=== PATIENT | female | born 1940 | race Caucasian/White ===

== ENCOUNTER 2020-08-20 10:32 | Emergency (ER) | payer MEDICARE ==
--- NOTE | 2020-08-20 11:14 | ERPHSYRPT ---
- History of Present Illness Time Seen by Provider: 08/20/20 10:50 Source: patient Exam Limitations: no limitations Patient Subjective Stated Complaint: Pt fell last Wednesday and went to the ER and pt is still weak, unable to swallow, pain to left hip Triage Nursing Assessment: Pt brought to the ER by her son,dori wnl, rates pain 9-10/10, pain to the left hip, pt was ambulatory last month without assistance prior to a fall, pt now walks with a walker and has problems when she turns, esophagus was dialated the first of July and then the end of July she began having problems again and chokes when drinking, gets stuck in throat and then vomits it up, since pt's fall last week her left foot has began turning outward Physician History: Patient is a 88-year-old female presents to our emergency department with her son. Patient lives with her son. Patient complaining of left thigh pain. Patient has a history of esophageal stenosis. Patient requires dilation frequently. Her last esophageal dilation was in July. Patient has not been eating and feels weak. Patient believes that her esophagus needs to be redilated. Patient states when she eats she just vomits up her food. Patient fall last Wednesday was attributed to this weakness. No chest pain or shortness of breath. No nausea vomiting or diaphoresis. Symptoms are constant. Symptoms are moderate in intensity. Weightbearing worsens pain. 2 weeks ago patient was ambulatory independently. Patient now requires a walker and states her left thigh hurts when she walks. Son at bedside. They voiced no other complaints concerns at this time. Timing/Duration: week(s) (1 week) Severity: moderate Modifying Factors: Improves With: movement Associated Symptoms: nausea, vomiting Allergies/Adverse Reactions: Penicillins Allergy (Verified 08/20/20 10:56) Sulfa (Sulfonamide Antibiotics) [Sulfa(Sulfonamide Antibiotics)] Allergy (Verified 08/20/20 10:56) Home Medications: Paroxetine HCl [Paxil] 30 mg PO DAILY 11/03/14 [History] ALPRAZolam 0.25 MG [xanAX 0.25 MG] 0.25 mg PO HS 08/20/20 [History] Albuterol/Ipratropium 3ml Neb* [DUONEB 0.5-3 MG/3 ml Neb] 1 inh PO QID 08/20/20 [History] Aripiprazole [Abilify] 5 mg PO HS 08/20/20 [History] Aspirin EC 81 mg [Ecotrin 81 mg] 81 mg PO DAILY 08/20/20 [History] Cyanocobalamin 1000 Mcg/ml [Cyanocobalamin B-12 1000 MCG/ML] 1,000 mcg IJ UD 08/20/20 [History] Esomeprazole Magnesium [Nexium] 40 mg PO DAILY 08/20/20 [History] Guaifenesin 400 mg PO BID 08/20/20 [History] Isosorbide Mononitrate [Isosorbide Mononitrate ER] 30 mg PO DAILY 08/20/20 [His tory] Lisinopril 20 mg [Zestril 20 MG] 20 mg PO DAILY 08/20/20 [History] Metoprolol Succinate 25 mg Xl* [Toprol-Xl 25MG Tablets] 25 mg PO BID 08/20/20 [History] Mirtazapine [Remeron] 15 mg PO DAILY 08/20/20 [History] Olanzapine 5 mg [zyPREXA 5MG TABLET] 5 mg PO HS 08/20/20 [History] Tizanidine HCl 4 mg [Zanaflex 4 MG] 4 mg PO TID PRN 08/20/20 [History] Tramadol HCl 50 mg [Ultram 50 mg] 50 mg PO Q6H PRN 08/20/20 [History] Trazodone HCl 100 mg PO HS 08/20/20 [History] Hx Tetanus, Diphtheria Vaccination/Date Given: Yes Hx Influenza Vaccination/Date Given: No Hx Pneumococcal Vaccination/Date Given: No Travel Risk - International Travel Have you traveled outside of the country in past 3 weeks: No - Coronavirus Screening Are you exhibiting any of the following symptoms?: No Close contact with a COVID-19 positive Pt in past 14-21 Days: No - Vaccine Status Have you recieved a Covid-19 vaccination: Yes Mechanical Design Technician: [employer] - Vaccination Dates Date of 2cond Vaccination (if applicable): 05/08/2020 - Review of Systems Constitutional: No Symptoms, No Fever, No Chills Eyes: No Symptoms Ears, Nose, & Throat: No Symptoms Respiratory: No Symptoms, No Cough, No Dyspnea Cardiac: No Symptoms, No Chest Pain, No Edema, No Syncope Abdominal/Gastrointestinal: No Symptoms, No Abdominal Pain, No Nausea, No Vo miting, No Diarrhea Genitourinary Symptoms: No Symptoms, No Dysuria Musculoskeletal: No Symptoms, No Back Pain, No Neck Pain Skin: No Symptoms, No Rash Neurological: No Symptoms, No Dizziness, No Focal Weakness, No Sensory Changes Psychological: No Symptoms Endocrine: No Symptoms Hematologic/Lymphatic: No Symptoms Immunological/Allergic: No Symptoms All Other Systems: Reviewed and Negative - Past Medical History Pertinent Past Medical History: Yes Neurological History: No Pertinent History ENT History: No Pertinent History Cardiac History: No Pertinent History Respiratory History: COPD Endocrine Medical History: No Pertinent History Musculoskeletal History: Fractures, Osteoarthritis GI Medical History: No Pertinent History History: Other Psycho-Social History: Depression Female Reproductive Disorders: No Pertinent History Other Medical History: SLEEP APNEA; KIDNEY STONES - Past Surgical History Past Surgical History: Yes Neuro Surgical History: No Pertinent History Cardiac: No Pertinent History Respiratory: No Pertinent History Gastrointestinal: No Pertinent History Genitourinary: Other Musculoskeletal: Joint Replacement, Orthopedic Surgery Female Surgical History: Hysterectomy Other Surgical History: kidney stonesX2, rt clavicle with pins and wires - Social History Smoking Status: Current every day smoker How long have you smoked: 55 Exposure to second hand smoke: Yes Drug Use: none Patient Lives Alone: No Significant Family History: notes - Female History Hx Now: No - Nursing Vital Signs Nursing Vital Signs: Initial Vital Signs Temperature 97.8 F 08/20/20 10:45 Pulse Rate 75 08/20/20 10:45 Blood Pressure 110/48 08/20/20 10:45 O2 Sat by Pulse Oximetry 94 L 08/20/20 10:45 Pain Scale Pain Intensity 5 - Physical Exam General Appearance: no apparent distress, mild distress (Patient has COPD. Patient denies shortness of breath. Patient appears to be mildly tachypneic with mildly labored breathing. Patient denies symptomology otherwise.), alert, cachetic, thin Eye Exam: PERRL/EOMI, eyes nml inspection Ears, Nose, Throat Exam: normal ENT inspection, TMs normal, pharynx normal, moist mucous membranes Neck Exam: normal inspection, non-tender, supple, full range of motion Respiratory Exam: normal breath sounds, lungs clear, No respiratory distress Cardiovascular Exam: regular rate/rhythm, normal heart sounds, normal peripheral pulses Gastrointestinal/Abdomen Exam: soft, normal bowel sounds, No tenderness, No mass Back Exam: normal inspection, normal range of motion, No CVA tenderness, No vertebral tenderness Extremity Exam: normal inspection, normal range of motion, pelvis stable, other (Tenderness to palpation at left lateral thigh. This has been ongoing for 1 week. Patient has had multiple x-rays that were all negative. X-rays were performed at [facility].) Neurologic Exam: alert, oriented x 3, cooperative, normal mood/affect, nml cerebellar function, nml station & gait, sensation nml, No motor deficits Skin Exam: normal color, warm, dry, No rash Lymphatic Exam: No adenopathy SpO2 Interpretation: normal SpO2: 94 O2 Delivery: Room Air - Course Nursing assessment & vital signs reviewed: Yes - Radiology Exams Hip X-ray Interpretation: Teleradiologist Report (Nondisplaced oblique proximal femur fracture and lesser trochanter fracture. Nondisplaced left superior pubic ramus fracture) Ordered Tests: Active Orders 24 hr Category Date Time Status Paper Machine Supervisor STAT Care 08/20/20 11:46 Completed EKG-ER Only STAT Care 08/20/20 11:46 Completed IV Insertion STAT Care 08/20/20 11:46 Completed IV Insertion-2nd Peripheral STAT Care 08/20/20 13:19 Completed Oxygen-ED Only Nasal Cannula 3 lpm Care 08/20/20 11:10 Completed Pulse Oximetry (ED) STAT Care 08/20/20 11:46 Completed FEMUR Stat Exams 08/20/20 11:47 Completed CBC W DIFF Stat Lab 08/20/20 12:15 Completed CMP Stat Lab 08/20/20 12:15 Completed CULTURE,URINE Stat Lab 08/20/20 11:55 Received Manual Differential NC Stat Lab 08/20/20 12:15 Completed TROPONIN Q3H Lab 08/20/20 12:15 Completed TROPONIN Q3H Lab 08/20/20 15:08 Completed TROPONIN Q3H Lab 08/20/20 18:00 Ordered TROPONIN Q3H Lab 08/20/20 21:00 Ordered UA W/RFX UR CULTURE Stat Lab 08/20/20 11:55 Completed Medication Summary Discontinued Medications Generic Name Dose Route Start Last Admin Trade Name Freq PRN Reason Stop Dose Admin Sodium Chloride 1,000 mls @ 50 mls/hr 08/20/20 12:00 08/20/20 11:54 Sodium Chloride 0.9% 1000 Ml IV 09/19/20 11:59 50 mls/hr .Q20H HARPREET Administration Ceftriaxone Sodium/Dextrose 1 g in 50 mls @ 100 mls/hr 08/20/20 12:57 08/20/20 13:59 Rocephin 1 Gm-D5w 50 Ml Bag IV 08/20/20 13:26 Infused STAT ONE Infusion Potassium Chloride 20 meq in 100 mls @ 50 mls/hr 08/20/20 13:00 08/20/20 16:13 Potassium Chloride 20 Meq In Water 100ml IV 08/20/20 16:59 Not Given Q2H HARPREET Ceftriaxone Sodium/Dextrose Confirm 08/20/20 13:04 Rocephin 1 Gm-D5w 50 Ml Bag Administered 08/20/20 13:05 Dose 1 g in 50 mls @ ud IV .STK-MED ONE Sodium Chloride Confirm 08/20/20 11:52 Sodium Chloride 0.9% 1000 Ml Administered 08/20/20 11:53 Dose 1,000 mls @ ud .ROUTE .STK-MED ONE Potassium Chloride Confirm 08/20/20 13:17 Potassium Chloride 20 Meq In Water 100ml Administered 08/20/20 13:18 Dose 100 mls @ ud IV .STK-MED ONE Potassium Chloride Confirm 08/20/20 16:10 Potassium Chloride 20 Meq In Water 100ml Administered 08/20/20 16:11 Dose 100 mls @ ud IV .STK-MED ONE Morphine Sulfate 4 mg 08/20/20 12:25 08/20/20 12:26 Morphine Sulfate 4 Mg Inj IV 08/20/20 12:26 4 mg STAT ONE Administration Morphine Sulfate Confirm 08/20/20 12:26 Morphine Sulfate 4 Mg Inj Administered 08/20/20 12:27 Dose 4 mg .ROUTE .STK-MED ONE Morphine Sulfate 4 mg 08/20/20 16:04 08/20/20 16:14 Morphine Sulfate 4 Mg Inj IV 08/20/20 16:05 4 mg STAT ONE Administration Morphine Sulfate Confirm 08/20/20 16:14 Morphine Sulfate 4 Mg Inj Administered 08/20/20 16:15 Dose 4 mg .ROUTE .STK-MED ONE Potassium Chloride 40 meq 08/20/20 12:56 08/20/20 13:00 Klor Con 10 Meq PO 08/20/20 12:57 Not Given STAT ONE Lab/Rad Data: Laboratory Result Diagrams 08/20/20 12:15 08/20/20 12:15 Laboratory Results 08/20/20 08/20/20 08/20/20 Range/Units 15:08 12:15 12:15 WBC (4.0-10.5) K/mm3 RBC (4.1-5.4) M/mm3 Hgb (12.0-16.0) gm/dl Hct (35-47) % MCV (78-100) fl MCH (26-32) pg MCHC (32-36) g/dl RDW (11.5-14.0) % Plt Count (150-450) K/mm3 MPV (7.5-11.0) fl Segmented Neutrophils (36.0-66.0) % Band Neutrophils (0.0-2.0) % Lymphocytes (Manual) (24-44) % Monocytes (Manual) (0.0-12.0) % Eosinophils (Manual) (0.00-3.0) % Toxic Granulation Platelet Estimate (NORMAL) RBC Morphology Anisocytosis Sodium 142 (137-145) mmol/L Potassium 2.8 L* (3.5-5.1) mmol/L Chloride 107 (98-107) mmol/L Carbon Dioxide 24 (22-30) mmol/L Anion Gap 13.1 (5-15) MEQ/L BUN 31 H (7-17) mg/dL Creatinine 1.57 H (0.52-1.04) mg/dL Estimated GFR 33.9 ML/MIN Glucose 94 (74-106) mg/dL Calcium 9.3 (8.4-10.2) mg/dL Total Bilirubin 0.50 (0.2-1.3) mg/dL AST 24 (14-36) U/L ALT 33 (0-35) U/L Alkaline Phosphatase 146 H (38-126) U/L Troponin I 0.012 0.013 (0.000-0.034) ng/mL Serum Total Protein 5.9 L (6.3-8.2) g/dL Albumin 3.3 L (3.5-5.0) g/dL Urine Color (YELLOW) Urine Appearance (CLEAR) Urine pH (5-6) Ur Specific Wayne (1.005-1.025) Urine Protein (Negative) Urine Ketones (NEGATIVE) Urine Blood (0-5) Hamilton/ul Urine Nitrite (NEGATIVE) Urine Bilirubin (NEGATIVE) Urine Urobilinogen (0-1) mg/dL Ur Leukocyte Esterase (NEGATIVE) Urine WBC (Auto) (0-5) /HPF Urine RBC (Auto) (0-2) /HPF U Epithel Cells (Auto) (FEW) /HPF Urine Bacteria (Auto) (NEGATIVE) /HPF Urine Culture Reflexed (NO) Urine Glucose (NEGATIVE) mg/dL 08/20/20 08/20/20 Range/Units 12:15 11:55 WBC 21.2 H (4.0-10.5) K/mm3 RBC 3.87 L (4.1-5.4) M/mm3 Hgb 11.0 L (12.0-16.0) gm/dl Hct 35.4 (35-47) % MCV 91.5 (78-100) fl MCH 28.4 (26-32) pg MCHC 31.1 L (32-36) g/dl RDW 15.0 H (11.5-14.0) % Plt Count 312 (150-450) K/mm3 MPV 10.0 (7.5-11.0) fl Segmented Neutrophils 85 H (36.0-66.0) % Band Neutrophils 5 H (0.0-2.0) % Lymphocytes (Manual) 6 L (24-44) % Monocytes (Manual) 2 (0.0-12.0) % Eosinophils (Manual) 2 (0.00-3.0) % Toxic Granulation 2+ Platelet Estimate NORMAL (NORMAL) RBC Morphology ABNORMAL Anisocytosis 1+ Sodium (137-145) mmol/L Potassium (3.5-5.1) mmol/L Chloride (98-107) mmol/L Carbon Dioxide (22-30) mmol/L Anion Gap (5-15) MEQ/L BUN (7-17) mg/dL Creatinine (0.52-1.04) mg/dL Estimated GFR ML/MIN Glucose (74-106) mg/dL Calcium (8.4-10.2) mg/dL Total Bilirubin (0.2-1.3) mg/dL AST (14-36) U/L ALT (0-35) U/L Alkaline Phosphatase (38-126) U/L Troponin I (0.000-0.034) ng/mL Serum Total Protein (6.3-8.2) g/dL Albumin (3.5-5.0) g/dL Urine Color YELLOW (YELLOW) Urine Appearance CLOUDY (CLEAR) Urine pH 5.0 (5-6) Ur Specific Wayne 1.015 (1.005-1.025) Urine Protein 30 (Negative) Urine Ketones NEGATIVE (NEGATIVE) Urine Blood NEGATIVE (0-5) Hamilton/ul Urine Nitrite POSITIVE (NEGATIVE) Urine Bilirubin NEGATIVE (NEGATIVE) Urine Urobilinogen NEGATIVE (0-1) mg/dL Ur Leukocyte Esterase LARGE (NEGATIVE) Urine WBC (Auto) >100 (0-5) /HPF Urine RBC (Auto) 3-5 (0-2) /HPF U Epithel Cells (Auto) NONE (FEW) /HPF Urine Bacteria (Auto) MANY (NEGATIVE) /HPF Urine Culture Reflexed YES (NO) Urine Glucose NEGATIVE (NEGATIVE) mg/dL - Progress Progress: improved Progress Note: Case discussed with Dr. Galvin at [facility]. Transfer was declined due to orthopedic surgery concerned that the hip fracture required reconstructive surgery. We contacted Ortho physician at [facility]. He stated maria c t the fracture did not require any surgical intervention. We called back [facility]. He spoke to Dr. Garcia who reviewed the x-rays and accepted the transfer. Dr. Galvin then accepted the transfer. We will transfer patient at [facility]. Case discussed with patient. She agrees to transfer to [facility] for further evaluation and treatment. Electrolyte abnormalities addressed. IV fluids infused. Antibiotic infused for UTI. Patient stable at time of transfer. The atrial fibrillation finding was discussed with Dr. Galvin. He advised not to administer anticoagulation as patient may require surgery. Patient was at [facility] recently. A. fib was not identified. It is uncertain whether or not this is actual A. fib or artifact on EKG. 08/20/20 17:21 08/20/20 17:23 Counseled pt/family regarding: lab results, diagnosis, rad results - Departure Departure Disposition: Transfer Clinical Impression: Atrial fibrillation, UTI (urinary tract infection), Hip fracture, Leukocytosis, Dehydration, Acute renal injury Condition: Stable Critical Care Time: No Referrals: BARBARA,JADEN, MD [Primary Care Provider] -
[2020-08-20] MEDS ORDERED: Sodium Chloride 0.9% 1000 ML 1,000 ML ONE (11:52)
[2020-08-20] MEDS ORDERED: Sodium Chloride 0.9% 1000 ML 1,000 ML IV SCH (12:00)
[2020-08-20 12:17] LABS: Hematocrit 35.4 % (35-47); Mean Cell Volume 91.5 fl (78-100); Mean Corpuscular Hemoglobin 28.4 pg (26-32); Mean Corpuscular Hgb Concent. 31.1 g/dl (32-36); Platelet Count 312 K/mm3 (150-450); Red Blood Count 3.87 M/mm3 (4.1-5.4); White Blood Count 21.2 K/mm3 (4.0-10.5)
[2020-08-20 12:25] LABS: Appearance CLOUDY (CLEAR); Bacteria MANY /HPF (NEGATIVE); Bilirubin NEGATIVE (NEGATIVE); Blood NEGATIVE Ery/ul (0-5); Glucose NEGATIVE (NEGATIVE); Ketones NEGATIVE (NEGATIVE); Leukocyte Esterase LARGE (NEGATIVE); Nitrite POSITIVE (NEGATIVE); Protein,Urine Dip 30 (Negative); Specific Gravity 1.015 (1.005-1.025); Urobilinogen NEGATIVE mg/dL (0-1); WBC >100 /HPF (0-5)
[2020-08-20] MEDS ORDERED: MORPHINE SULFATE 4 MG INJ IV ONE ×2 (12:25→16:04)
[2020-08-20] MEDS ORDERED: MORPHINE SULFATE 4 MG INJ ONE ×2 (12:26→16:14)
--- NOTE | 2020-08-20 12:33 | XRAY ---
Indication: Pain following fall one week ago. Comparison: CT left femur July 25, 2015. 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 New nondisplaced oblique proximal femur fracture including lesser trochanter and new nondisplaced left superior pubic ramus fracture. No other bony, articular, or soft tissue abnormalities.
[2020-08-20 12:46] LABS: ALBUMIN 3.3 g/dL (3.5-5.0); ANION GAP 13.1 MEQ/L (5-15); BILIRUBIN,TOTAL 0.5 mg/dL (0.2-1.3); Calcium 9.3 mg/dL (8.4-10.2); Creatinine 1 1.57 mg/dL (0.52-1.04); EST GLOMERULAR FILTRATION RATE 33.9 ML/MIN; Total Protein 5.9 g/dL (6.3-8.2)
[2020-08-20 12:50] LABS: Potassium 2.8 mmol/L (3.5-5.1)
[2020-08-20] MEDS ORDERED: Klor Con 10 MEQ PO ONE (12:56)
[2020-08-20] MEDS ORDERED: ROCEPHIN 1 Gm-D5w 50 ml Bag** 1 G/50 ML IVPB IV ONE ×2 (12:57→13:04)
[2020-08-20] MEDS ORDERED: POTASSIUM CHLORIDE 20 mEq IN WATER 100ML 0 ML IV ONE (13:17)
[2020-08-20] MEDS: POTASSIUM CHLORIDE 20 mEq IN WATER 100ML 20 MEQ/100 ML BAG IV SCH ×2 (13:18→16:13)
[2020-08-20 15:01] LABS: ANISOCYTOSIS 1+; BAND 5 % (0.0-2.0); Eosinophil 2 % (0.00-3.0); Lymphocytes 6 % (24-44); Monocyte 2 % (0.0-12.0); Neutrophils 85 % (36.0-66.0); Platelet Estimate NORMAL (NORMAL); Total Cells Counted 100; Toxic Granulation 2+
[2020-08-20] MEDS ORDERED: POTASSIUM CHLORIDE 20 mEq IN WATER 100ML 100 ML IV ONE (16:10)
[2020-08-20 17:13] VITALS: BP 91/48; PULSE 72
[2020-08-20 17:24] VITALS: O2SAT 94
== END 2020-08-20 17:16 | disposition short-term general hospital (02) ==
LOC: ED 10:32
DX: I48.91 Unspecified atrial fibrillation (principal); N39.0 Urinary tract infection, site not specified; S72.002A Fracture of unspecified part of neck of left femur, initial encounter for closed fracture; M97.02XD Periprosthetic fracture around internal prosthetic left hip joint, subsequent encounter; D72.829 Elevated white blood cell count, unspecified; E86.0 Dehydration; N17.2 Acute kidney failure with medullary necrosis; Z79.899 Other long term (current) drug therapy; J44.9 Chronic obstructive pulmonary disease, unspecified; Z87.898 Personal history of other specified conditions; Z87.442 Personal history of urinary calculi
CPT/HCPCS: 36000; 36415; 73552; 80053; 81001; 84484; 85025; 87077; 87086; 87186; 93005; 93041; 94760; 96360; 96361; 96365; 96367; 96374; 96376; 99285; J0696; J2270; J3480